=== PATIENT | female | born 1995 | race Caucasian/White ===

== ENCOUNTER 2019-07-05 07:01 | Emergency (ER) | payer OTHER ==
[~2019-07-05] VITALS: Ht 162.6 cm; Wt 80.0 kg
[2019-07-05] MEDS ORDERED: TOPAMAX25 MG PO (07:26)
[2019-07-05] MEDS ORDERED: DIVALPROEX SOD250 MG PO (07:27)
[2019-07-05] MEDS ORDERED: XARELTO10 MG PO (07:27)
[2019-07-05] MEDS ORDERED: MEDROXYPROGESTER5 MG PO (07:30)
[2019-07-05 08:04] LABS: URINE BILIRUBIN - DIPSTICK NEGATIVE (NEGATIVE); URINE BLOOD DIPSTICK SMALL (NEGATIVE); URINE COLOR YELLOW; URINE GLUCOSE - DIPSTICK NEGATIVE (NEGATIVE); URINE KETONE TRACE mg/dL (NEGATIVE); URINE LEUK ESTERASE NEGATIVE (NEGATIVE); URINE NITRITE - DIPSTICK NEGATIVE (Negative); URINE PROTEIN - DIPSTICK NEGATIVE (NEG-TRACE); URINE SPECIFIC GRAVITY 1.015; URINE UROBILINOGEN - DIPSTICK 0.2 E.U./dL (0.2)
[2019-07-05 08:42] LABS: HEMATOCRIT 37.5 % (37.0-47.0); HEMOGLOBIN 12.5 g/dl (12.0-16.0); IMMATURE GRANULOCYTES 0.3 % (0.0-5.0); MEAN CORPUSCULAR HGB 28.3 pG CALC (26.0-32.0); MEAN CORPUSCULAR HGB CONC 33.3 g/L CALC (32.0-36.0); NEUT# 2.3 thou/uL (2.00-7.15); RED BLOOD COUNT 4.41 mill/uL (4.20-5.60); RED CELL DISTRI WIDTH 14.6 % (11.5-15.5)
[2019-07-05 08:46] LABS: URINE RBC 0-2 RBC/hpf (0-5); URINE SQUAMOUS EPITHELIAL CELL MODERATE EPI/hpf (0-FEW)
[2019-07-05 09:06] LABS: ALKALINE PHOSPHATASE 64 u/l (38-126); ANION GAP 16 (6-22 (CALC)); BILIRUBIN, TOTAL 0.4 mg/dL (0.0-1.4); BUN 11 mg/dL (7-17); BUN/CREATININE RATIO 14 (12-20 (CALC)); CARBON DIOXIDE 22 mmol/l (22-30); CHLORIDE 106 mmol/l (95-108); CREATININE 0.8 mg/dL (0.5-1.0); GFR > 60 ML/MIN (>=60 (CALC)); GFR FOR AFR.AMER. > 60 ML/MIN (>=60 (CALC)); POTASSIUM 4.3 mmol/l (3.5-5.1); SGOT/AST 22 u/l (14-36); SODIUM 141 mmol/l (137-146); TOTAL PROTEIN 8.3 g/dL (6.3-8.2)
[2019-07-05] MEDS ORDERED: TYLENOL # 31 TAB PO (11:36)
[2019-07-05 12:07] VITALS: BP 109/67
[2019-07-05] MEDS ORDERED: BENADRYL 25MG C25 MG PO (18:36)
[2019-07-05] MEDS ORDERED: PEPCID20 MG PO (20:00)
[2019-07-05] MEDS ORDERED: PREDNISONE10 MG PO (20:00)
== END 2019-07-05 12:10 | disposition home or self-care (01) ==
LOC: ED 07:01
DX: N94.6 Dysmenorrhea, unspecified (principal); Z86.718 Personal history of other venous thrombosis and embolism; Z79.01 Long term (current) use of anticoagulants

== ENCOUNTER 2019-07-05 18:23 | Emergency (ER) | payer OTHER ==
[~2019-07-05] VITALS: Ht 162.6 cm; Wt 70.0 kg
[~2019-07-05 18:23] MED LIST: DIVALPROEX SOD250 MG PO; MEDROXYPROGESTER5 MG PO; TOPAMAX25 MG PO; TYLENOL # 31 TAB PO; XARELTO10 MG PO
[2019-07-05] MEDS ORDERED: BENADRYL 25MG C25 MG PO (18:36)
[2019-07-05 20:00] VITALS: BP 107/70
[2019-07-05] MEDS ORDERED: PEPCID20 MG PO (20:00)
[2019-07-05] MEDS ORDERED: PREDNISONE10 MG PO (20:00)
== END 2019-07-05 20:15 | disposition home or self-care (01) ==
LOC: ED 18:23
DX: L29.8 Other pruritus (principal); T40.2X5A Adverse effect of other opioids, initial encounter; Z86.718 Personal history of other venous thrombosis and embolism; Z79.01 Long term (current) use of anticoagulants

== ENCOUNTER 2019-07-10 04:58 | Emergency (ER) | payer OTHER ==
[~2019-07-10] VITALS: Ht 162.6 cm; Wt 75.0 kg
[~2019-07-10 04:58] MED LIST changes: +BENADRYL 25MG C25 MG PO; +PEPCID20 MG PO; +PREDNISONE10 MG PO
[2019-07-10 05:55] LABS: HEMATOCRIT 37.5 % (37.0-47.0); HEMOGLOBIN 12.3 g/dl (12.0-16.0); IMMATURE GRANULOCYTES 0.3 % (0.0-5.0); MEAN CELL VOLUME 87.4 fL CALC (80.0-100.0); MEAN CORPUSCULAR HGB 28.7 pG CALC (26.0-32.0); MEAN CORPUSCULAR HGB CONC 32.8 g/L CALC (32.0-36.0); NEUT# 3.56 thou/uL (2.00-7.15); RED BLOOD COUNT 4.29 mill/uL (4.20-5.60); RED CELL DISTRI WIDTH 14.6 % (11.5-15.5)
[2019-07-10 06:19] LABS: ALBUMIN 4.7 g/dL (3.2-5.0); ALKALINE PHOSPHATASE 53 u/l (38-126); ANION GAP 16 (6-22 (CALC)); BUN 12 mg/dL (7-17); BUN/CREATININE RATIO 17 (12-20 (CALC)); CARBON DIOXIDE 25 mmol/l (22-30); CHLORIDE 106 mmol/l (95-108); CREATININE 0.7 mg/dL (0.5-1.0); ETHYL ALCOHOL 0 mg/dl (0-30); GFR > 60 ML/MIN (>=60 (CALC)); GFR FOR AFR.AMER. > 60 ML/MIN (>=60 (CALC)); LIPASE 49 u/l (23-300); POTASSIUM 3.9 mmol/l (3.5-5.1); SGOT/AST 16 u/l (14-36); SODIUM 142 mmol/l (137-146); TOTAL PROTEIN 7.7 g/dL (6.3-8.2)
[2019-07-10 06:20] LABS: BILIRUBIN, TOTAL 0.2 mg/dL (0.0-1.4)
[2019-07-10 06:30] LABS: BARBITURATES NEGATIVE (NEGATIVE); COCAINE NEGATIVE (NEGATIVE); METHADONE NEGATIVE (NEGATIVE); TETRAHYDROCANNABIONOL NEGATIVE (NEGATIVE); TRICYLIC ANTIDEPRESSANTS NEGATIVE (NEGATIVE)
[2019-07-10 06:31] LABS: OXCYCODONE NEGATIVE (NEGATIVE)
[2019-07-10 06:34] LABS: URINE BILIRUBIN - DIPSTICK NEGATIVE (NEGATIVE); URINE COLOR YELLOW; URINE GLUCOSE - DIPSTICK NEGATIVE (NEGATIVE); URINE KETONE Trace mg/dL (NEGATIVE); URINE PH 7 (4.5-8.0); URINE SPECIFIC GRAVITY 1.015
[2019-07-10 06:35] LABS: URINE BLOOD DIPSTICK NEGATIVE (NEGATIVE); URINE LEUK ESTERASE TRACE (NEGATIVE); URINE NITRITE - DIPSTICK NEGATIVE (Negative); URINE PROTEIN - DIPSTICK NEGATIVE (NEG-TRACE); URINE UROBILINOGEN - DIPSTICK Negative E.U./dL (0.2)
[2019-07-10] MEDS ORDERED: FAMOTIDINE20 M1 PO (06:58)
[2019-07-10] MEDS ORDERED: PREDNISONE10 MG PO (06:59)
[2019-07-10 10:35] VITALS: BP 132/82
== END 2019-07-10 10:40 | disposition short-term general hospital (02) ==
LOC: ED 04:58
DX: G40.901 Epilepsy, unspecified, not intractable, with status epilepticus (principal); Q07.01 Arnold-Chiari syndrome with spina bifida; Z86.718 Personal history of other venous thrombosis and embolism; Z79.01 Long term (current) use of anticoagulants
CPT/HCPCS: J1953; J2060